=== PATIENT | male | born 1980 | race African-American/Black ===

== ENCOUNTER 2019-07-26 | Emergency (ER) | payer BC ==
[~2019-07-26] MED LIST: AMOXICILLIN500 MG OR; AMOXICILLIN500 MG PO; BACTRIM DS1 TAB PO; DOXYCYCL HYC100 M3 OR; GENOPTIC0.3 % OD; METRONIDAZOL500 MG PO; NAPROSYN500 MG OR; NAPROSYN500 MG PO; NO CURRENT MEDS; ULTRAM50 MG OR
[2019-07-26] MEDS ORDERED: MEDDOSEPAK PO (20:09)
[2019-07-26] MEDS ORDERED: IBUPROFEN600 MG PO (20:09)
== END 2019-07-26 20:20 | disposition home or self-care (01) | DRG 558 ==
DX: M77.52 Other enthesopathy of left foot and ankle (principal)